=== PATIENT | male | born 1990 | race Hispanic/Latino ===

== ENCOUNTER 2017-01-17 19:04 | Emergency (ER) | payer SELFPAY | END 2017-01-17 21:29 | disposition home or self-care (01) | LOC: ERS 19:04 | DX: K64.8 Other hemorrhoids (principal); K62.81 Anal sphincter tear (healed) (nontraumatic) (old) | CPT/HCPCS: 99283 ==

== ENCOUNTER 2018-01-14 19:58 | Emergency (ER) | payer SELFPAY ==
[2018-01-14] MEDS ORDERED: Fluorescein Opthalmic Strip ONE (20:50)
[2018-01-14] MEDS ORDERED: Proparacaine 0.5% Opth 15 ML BOT ONE (20:50)
[2018-01-14] MEDS ORDERED: Metoclopramide HCl 10 MG/2 ML VIAL ONE (21:03)
[2018-01-14] MEDS ORDERED: diphenhydrAMINE 50 MG/ML VIAL ONE (21:06)
[2018-01-14] MEDS ORDERED: Acetaminophen 500 MG TAB ONE (21:09)
== END 2018-01-15 00:05 | disposition home or self-care (01) ==
LOC: ERS 19:58
DX: H57.11 Ocular pain, right eye (principal); G43.909 Migraine, unspecified, not intractable, without status migrainosus
CPT/HCPCS: J1200; J2765

== ENCOUNTER 2020-12-24 15:54 | Emergency (ER) | payer BC, SELFPAY ==
[~2020-12-24 15:54] MED LIST: Iopamidol-370 76% 500 ML 1 ML ONE
[2020-12-24] MEDS ORDERED: Ondansetron ODT 4 MG TAB ONE (16:28)
[2020-12-24] MEDS ORDERED: Dicyclomine 20 MG TAB ONE (16:28)
[2020-12-24 17:15] LABS: #Eosinphils 0.1 thou/uL (0.0-0.7); #Lymphocytes 0.5 thou/uL (1.20-3.40); #Monocytes 0.7 thou/uL (0.11-0.59); #Neutrophils 12.5 thou/uL (1.40-6.50); %Basophils 0.1 % (0.0-1.0); %Eosinophils 0.4 % (0.0-10.0); %Lymphocytes 3.5 % (21.0-51.0); %Monocytes 4.8 % (0.0-10.0); %Neutrophils 91.2 % (42.0-75.0); Hemoglobin 15.1 g/dL (14.0-18.0); Mean Corpuscular HGB CONC 34.9 g/dL (32.0-36.0); Mean Platelet Volume 7.3 fL (7.4-10.4); Platelet Count 337 thou/uL (130-400); RBC Distribution Width 12.2 % (11.5-14.5); Red Blood Cell (RBC) Count 5.02 mill/uL (4.70-6.10); White Blood Cell (WBC) Count 13.7 thou/uL (4.8-10.8)
[2020-12-24 17:45] LABS: ALT (SGPT) 61 U/L (8-55); AST (SGOT) 27 U/L (5-34); Albumin 4.4 g/dL (3.5-5.0); Alkaline Phosphatase 59 U/L (40-110); Anion Gap 12 mmol/L (10-20); BUN (Urea Nitrogen) 21 mg/dL (8.9-20.6); Bilirubin, Total 0.5 mg/dL (0.2-1.2); Calc. Creatinine Clearance 0 mL/min (70-130); Calcium 9.7 mg/dL (7.8-10.44); Carbon Dioxide 25 mmol/L (22-29); Chloride 106 mmol/L (98-107); Glucose 133 mg/dL (70-105); Lipase 31 U/L (8-78); Potassium 4.9 mmol/L (3.5-5.1); Protein, Total 7.4 g/dL (6.0-8.3); Sodium 138 mmol/L (136-145)
[2020-12-24] MEDS ORDERED: Mag-Al 1200 mg/1200 mg/30 ML UDCUP ONE (18:42)
[2020-12-24] MEDS ORDERED: Lidocaine Viscous Sol 2% 15 ml UD Cup ONE (18:42)
[2020-12-24] MEDS ORDERED: Morphine 4 MG/ML VIAL ONE (19:27)
== END 2020-12-24 21:00 | disposition home or self-care (01) ==
LOC: ERS 15:54
DX: K52.9 Noninfective gastroenteritis and colitis, unspecified (principal); R11.2 Nausea with vomiting, unspecified
CPT/HCPCS: 36415; 74177; 76705; 80053; 83690; 85025; 96374; J2270; Q0162; Q9967

== ENCOUNTER 2022-01-30 09:19 | Emergency (ER) | payer SELFPAY ==
[2022-01-30 10:02] LABS: #Eosinphils 0.2 thou/uL (0.0-0.7); #Lymphocytes 2.5 thou/uL (1.20-3.40); #Monocytes 0.6 thou/uL (0.11-0.59); #Neutrophils 3.3 thou/uL (1.40-6.50); %Basophils 0.7 % (0.0-1.0); %Eosinophils 2.8 % (0.0-10.0); %Lymphocytes 37.8 % (21.0-51.0); %Monocytes 8.7 % (0.0-10.0); Hemoglobin 15.3 g/dL (14.0-18.0); Mean Corpuscular HGB CONC 33.5 g/dL (32.0-36.0); Mean Corpuscular Hemoglobin 29.2 pg (27.0-31.0); Mean Platelet Volume 7.5 fL (7.4-10.4); Platelet Count 344 10x3/uL (130-400); RBC Distribution Width 11.9 % (11.5-14.5); Red Blood Cell (RBC) Count 5.24 mill/uL (4.70-6.10); White Blood Cell (WBC) Count 6.7 10x3/uL (4.8-10.8)
[2022-01-30 10:23] LABS: ALT (SGPT) 44 U/L (8-55); AST (SGOT) 20 U/L (5-34); Albumin 4.4 g/dL (3.5-5.0); Alkaline Phosphatase 81 U/L (40-110); Anion Gap 11 mmol/L (10-20); BUN (Urea Nitrogen) 14 mg/dL (8.9-20.6); Bilirubin, Total 0.5 mg/dL (0.2-1.2); Calc. Creatinine Clearance 0 mL/min (70-130); Calcium 9.5 mg/dL (7.8-10.44); Carbon Dioxide 26 mmol/L (22-29); Chloride 105 mmol/L (98-107); Estimated GFR 117; Glucose 95 mg/dL (70-105); Potassium 4.4 mmol/L (3.5-5.1); Protein, Total 7.4 g/dL (6.0-8.3); Sodium 138 mmol/L (136-145)
[2022-01-30 12:01] LABS: Bilirubin Negative (Negative); Blood, Urine Negative (Negative); Clarity Clear (Clear); Glucose, Urine (Dipstick) Normal (Negative); Ketone, Urine Negative (Negative); Leukocyte Negative Leu/uL (Negative); Nitrite Negative (Negative); Protein, Urine (Dipstick) Negative (Neg-Trace); Urobilinogen Normal mg/dL (Less than 2); pH, Urine 6.5 (5.0-9.0)
[2022-01-30] MEDS ORDERED: cefTRIAXone\\ROCEPHIN 500 MG VIAL ONE (14:50)
[2022-01-30] MEDS ORDERED: Lidocaine 1% PF 5 ML VIAL ONE (14:50)
[2022-01-30] MEDS ORDERED: Doxycycline 100 MG CAP PO SCH (15:00)
[2022-01-30 18:40] LABS: Chlam.trachomatis by PCR,Urine Not Detected (NotDetected)
== END 2022-01-30 15:18 | disposition home or self-care (01) ==
LOC: ERS 09:19
DX: N50.89 Other specified disorders of the male genital organs (principal)
CPT/HCPCS: 36415; 76870; 80053; 81003; 85025; 87491; 87591; 93976; 96372; J0696

== ENCOUNTER 2022-03-01 18:06 | Emergency (ER) | payer BC, SELFPAY ==
[2022-03-01] MEDS ORDERED: diphenhydrAMINE 50 MG/ML VIAL ONE (21:08)
[2022-03-01] MEDS ORDERED: Metoclopramide HCl 10 MG/2 ML VIAL ONE (21:08)
[2022-03-01] MEDS ORDERED: Acetaminophen 500 MG TAB ONE (22:33)
== END 2022-03-01 23:30 | disposition home or self-care (01) ==
LOC: ERS 18:06
DX: H61.21 Impacted cerumen, right ear (principal)
CPT/HCPCS: 70450; 96372; J1200; J2765

== ENCOUNTER 2022-11-30 11:08 | Emergency (ER) | payer OTHER, BC ==
[2022-11-30] MEDS ORDERED: HYDROcodone/Acetaminophen 5/325 mg Tablet ONE (11:45)
== END 2022-11-30 13:29 | disposition home or self-care (01) ==
LOC: ERS 11:08
DX: M54.2 Cervicalgia (principal); R51.9 Headache, unspecified; V49.9XXA Car occupant (driver) (passenger) injured in unspecified traffic accident, initial encounter
CPT/HCPCS: 70450; 72070; 72100; 72125